=== PATIENT | male | born 1935 | race Caucasian/White ===

== ENCOUNTER 2018-09-15 08:16 | Day surgery (SDC) | payer MEDICARE, OTHER ==
[~2018-09-15] VITALS: Ht 177.8 cm; Wt 104.0 kg
[~2018-09-15 08:16] MED LIST: ASCO500 PO; Aspir-Low81 MG PO; CENTRUM ADULTS1 EACH PO; Calcium 600 +1 EAC1 PO; MAGNESIUM250 MG PO; Red Yeast Rice600 MG; SELENIUM200 MCG PO; Salmon Oil 1,01 EACH PO; VITAMIN D32000 UNI2; VITAMIN E400 UNI1 PO; Zestril30 MG PO
== END 2018-09-15 10:34 | disposition home or self-care (01) ==
LOC: ORSCSDS 08:16
PROVIDERS: Surgery
PROC: 0DBP8ZX Excision of Rectum, Via Natural or Artificial Opening Endoscopic, Diagnostic (ICD-10-PCS; principal; 2018-09-15 09:45)
DX: Z12.11 Encounter for screening for malignant neoplasm of colon (principal); Z86.010 Personal history of colon polyps; K62.1 Rectal polyp; I10 Essential (primary) hypertension; Z87.891 Personal history of nicotine dependence; Z79.899 Other long term (current) drug therapy; Z79.82 Long term (current) use of aspirin
CPT/HCPCS: 88305; J2405; J7120